=== PATIENT | female | born 1950 | race Caucasian/White ===

== ENCOUNTER 2021-07-09 15:26 | Emergency (ER) | payer MEDICARE, BC ==
[2021-07-09] MEDS: HYDROmorphone 2 MG/ML SDV IVPUSH ONE ×2 (15:40→15:50)
[2021-07-09] MEDS ORDERED: HYDROmorphone 2 MG/ML SDV IVPUSH ONE (15:51)
[2021-07-09] MEDS ORDERED: HYDROmorphone 2 MG/ML Syringe ONE ×2 (15:56→16:02)
[2021-07-09] MEDS ORDERED: Piperacillin/Tazobactam 4.5 GM in Sodium Chloride 0.9% 100 ML IV ONE (15:58)
[2021-07-09] MEDS ORDERED: Sodium Chloride 0.9% 1,000 ML IV ONE (15:58)
[2021-07-09] MEDS ORDERED: Sodium Chloride 0.9% 10 ML Syringe FLUSH PRN (15:58)
[2021-07-09] MEDS ORDERED: Ondansetron 4 MG/2 ML SDV IVPUSH ONE (16:19)
[2021-07-09] MEDS ORDERED: Ondansetron 4 MG/2 ML SDV ONE (17:59)
== END 2021-07-09 19:23 ==
LOC: LB.ED 15:26
DX: A41.9 Sepsis, unspecified organism (principal); R10.11 Right upper quadrant pain; J94.2 Hemothorax; D72.829 Elevated white blood cell count, unspecified; Z20.822 Contact with and (suspected) exposure to COVID-19
CPT/HCPCS: 36415; 71250; 74176; 80053; 83605; 83690; 84484; 85025; 87040; 93005; 93010; 96365; 96375; 99285; 99285-25; J1170; J2405; J2543; J3490; J7030; U0002

== ENCOUNTER 2021-07-15 12:03 | Inpatient (IN) | payer MEDICARE, BC ==
[2021-07-15] MEDS ORDERED: Melatonin 10 MG Cap PO PRN (17:31)
[2021-07-15] MEDS: Flecainide 50 MG Tab PO SCH (17:52)
[2021-07-15] MEDS: Piperacillin/Tazobactam 3.375 GM in Sodium Chloride 0.9% 50 ML IV SCH (18:36)
[2021-07-15] MEDS: Albuterol/Ipratropium 3.0-0.5 MG/3 ML Neb Soln NEB SCH (19:50)
[2021-07-15] MEDS: guaiFENesin 600 MG Tab.ER PO SCH (19:50)
[2021-07-16] MEDS: Piperacillin/Tazobactam 3.375 GM in Sodium Chloride 0.9% 50 ML IV SCH ×3 (03:40→18:20)
[2021-07-16] MEDS: Flecainide 50 MG Tab PO SCH ×2 (06:41→18:20)
[2021-07-16] MEDS: Albuterol/Ipratropium 3.0-0.5 MG/3 ML Neb Soln NEB SCH ×3 (07:38→20:20)
[2021-07-16] MEDS: Metoprolol Succinate 25 MG Tab.ER PO SCH (07:39)
[2021-07-16] MEDS: guaiFENesin 600 MG Tab.ER PO SCH ×2 (07:39→20:20)
[2021-07-17] MEDS: Piperacillin/Tazobactam 3.375 GM in Sodium Chloride 0.9% 50 ML IV SCH ×3 (03:39→18:00)
[2021-07-17] MEDS: Flecainide 50 MG Tab PO SCH ×2 (06:38→17:57)
[2021-07-17] MEDS: Metoprolol Succinate 25 MG Tab.ER PO SCH (07:18)
[2021-07-17] MEDS: Albuterol/Ipratropium 3.0-0.5 MG/3 ML Neb Soln NEB SCH ×3 (07:19→20:30)
[2021-07-17] MEDS: guaiFENesin 600 MG Tab.ER PO SCH ×2 (07:19→20:30)
[2021-07-18] MEDS: Piperacillin/Tazobactam 3.375 GM in Sodium Chloride 0.9% 50 ML IV SCH ×3 (04:05→18:40)
[2021-07-18] MEDS: Flecainide 50 MG Tab PO SCH ×2 (06:49→17:29)
[2021-07-18] MEDS: Ibuprofen 400 MG Tab PO PRN (06:49)
[2021-07-18] MEDS: Metoprolol Succinate 25 MG Tab.ER PO SCH (07:57)
[2021-07-18] MEDS: guaiFENesin 600 MG Tab.ER PO SCH ×2 (07:57→19:42)
[2021-07-18] MEDS: Albuterol/Ipratropium 3.0-0.5 MG/3 ML Neb Soln NEB SCH ×3 (07:57→19:43)
[2021-07-19] MEDS: Piperacillin/Tazobactam 3.375 GM in Sodium Chloride 0.9% 50 ML IV SCH ×4 (04:01→19:54)
[2021-07-19] MEDS: Flecainide 50 MG Tab PO SCH ×2 (05:48→18:07)
[2021-07-19] MEDS: Ibuprofen 400 MG Tab PO PRN (05:51)
[2021-07-19] MEDS: Metoprolol Succinate 25 MG Tab.ER PO SCH (07:44)
[2021-07-19] MEDS: Albuterol/Ipratropium 3.0-0.5 MG/3 ML Neb Soln NEB SCH ×3 (07:44→19:55)
[2021-07-19] MEDS: guaiFENesin 600 MG Tab.ER PO SCH ×2 (07:45→19:55)
[2021-07-19] MEDS ORDERED: Piperacillin/Tazobactam 3.375 GM in Sodium Chloride 0.9% 50 ML IV SCH (12:00)
[2021-07-19] MEDS ORDERED: HEPARIN SODIUM FLUSH SCH (14:00)
[2021-07-19] MEDS: Sodium Chloride 0.9% 10 ML Syringe FLUSH SCH ×2 (17:02→22:00)
[2021-07-20] MEDS: Piperacillin/Tazobactam 3.375 GM in Sodium Chloride 0.9% 50 ML IV SCH ×3 (04:00→19:41)
[2021-07-20] MEDS: Flecainide 50 MG Tab PO SCH ×2 (05:45→18:08)
[2021-07-20] MEDS: Sodium Chloride 0.9% 10 ML Syringe FLUSH SCH ×2 (06:10→13:06)
[2021-07-20] MEDS: guaiFENesin 600 MG Tab.ER PO SCH ×2 (07:28→19:40)
[2021-07-20] MEDS: Metoprolol Succinate 25 MG Tab.ER PO SCH (07:28)
[2021-07-20] MEDS: Albuterol/Ipratropium 3.0-0.5 MG/3 ML Neb Soln NEB SCH ×3 (07:28→19:40)
[2021-07-21] MEDS: Sodium Chloride 0.9% 10 ML Syringe FLUSH SCH ×5 (03:45→21:27)
[2021-07-21] MEDS: Piperacillin/Tazobactam 3.375 GM in Sodium Chloride 0.9% 50 ML IV SCH ×3 (03:47→19:39)
[2021-07-21] MEDS: Flecainide 50 MG Tab PO SCH (05:27)
[2021-07-21] MEDS: Ibuprofen 400 MG Tab PO PRN (05:29)
[2021-07-21] MEDS: Albuterol/Ipratropium 3.0-0.5 MG/3 ML Neb Soln NEB SCH ×3 (08:03→19:38)
[2021-07-21] MEDS: Metoprolol Succinate 25 MG Tab.ER PO SCH (08:04)
[2021-07-21] MEDS: guaiFENesin 600 MG Tab.ER PO SCH ×2 (08:04→19:38)
[2021-07-21] MEDS: Flecainide 100 MG Tab PO SCH (18:03)
[2021-07-22] MEDS: Piperacillin/Tazobactam 3.375 GM in Sodium Chloride 0.9% 50 ML IV SCH ×3 (03:29→20:04)
[2021-07-22] MEDS: Sodium Chloride 0.9% 10 ML Syringe FLUSH SCH ×3 (05:51→20:35)
[2021-07-22] MEDS: Flecainide 100 MG Tab PO SCH ×2 (05:51→17:15)
[2021-07-22] MEDS: Albuterol/Ipratropium 3.0-0.5 MG/3 ML Neb Soln NEB SCH ×3 (08:28→20:09)
[2021-07-22] MEDS: Metoprolol Succinate 25 MG Tab.ER PO SCH (08:34)
[2021-07-22] MEDS: guaiFENesin 600 MG Tab.ER PO SCH ×2 (08:34→20:04)
[2021-07-22] MEDS ORDERED: Fluconazole 150 MG Tab PO ONE (11:43)
[2021-07-22] MEDS ORDERED: Melatonin 10 MG Cap PO SCH (20:00)
[2021-07-22] MEDS: Melatonin 3 MG Tab PO SCH (20:18)
[2021-07-23] MEDS: Piperacillin/Tazobactam 3.375 GM in Sodium Chloride 0.9% 50 ML IV SCH ×3 (04:27→19:51)
[2021-07-23] MEDS: Sodium Chloride 0.9% 10 ML Syringe FLUSH SCH ×3 (05:00→22:37)
[2021-07-23] MEDS: Flecainide 100 MG Tab PO SCH ×2 (05:58→17:42)
[2021-07-23] MEDS: guaiFENesin 600 MG Tab.ER PO SCH ×2 (08:54→19:51)
[2021-07-23] MEDS: Albuterol/Ipratropium 3.0-0.5 MG/3 ML Neb Soln NEB SCH ×3 (08:54→19:51)
[2021-07-23] MEDS: Metoprolol Succinate 25 MG Tab.ER PO SCH (08:54)
[2021-07-23] MEDS: Pantoprazole 40 MG Tab.CR PO SCH (08:54)
[2021-07-23] MEDS: Melatonin 3 MG Tab PO SCH (19:51)
[2021-07-24] MEDS: Piperacillin/Tazobactam 3.375 GM in Sodium Chloride 0.9% 50 ML IV SCH ×3 (04:00→20:01)
[2021-07-24] MEDS: Flecainide 100 MG Tab PO SCH ×2 (05:45→17:11)
[2021-07-24] MEDS: Sodium Chloride 0.9% 10 ML Syringe FLUSH SCH ×3 (05:45→22:00)
[2021-07-24] MEDS: Pantoprazole 40 MG Tab.CR PO SCH (08:25)
[2021-07-24] MEDS: Metoprolol Succinate 25 MG Tab.ER PO SCH (08:25)
[2021-07-24] MEDS: Albuterol/Ipratropium 3.0-0.5 MG/3 ML Neb Soln NEB SCH ×3 (08:25→20:01)
[2021-07-24] MEDS: guaiFENesin 600 MG Tab.ER PO SCH ×2 (08:25→20:01)
[2021-07-24] MEDS: Melatonin 3 MG Tab PO SCH (20:01)
[2021-07-25] MEDS: Piperacillin/Tazobactam 3.375 GM in Sodium Chloride 0.9% 50 ML IV SCH ×3 (03:52→20:08)
[2021-07-25] MEDS: Flecainide 100 MG Tab PO SCH ×2 (05:29→17:53)
[2021-07-25] MEDS: Sodium Chloride 0.9% 10 ML Syringe FLUSH SCH ×4 (05:29→22:00)
[2021-07-25] MEDS: Metoprolol Succinate 25 MG Tab.ER PO SCH (07:29)
[2021-07-25] MEDS: Pantoprazole 40 MG Tab.CR PO SCH (07:29)
[2021-07-25] MEDS: Albuterol/Ipratropium 3.0-0.5 MG/3 ML Neb Soln NEB SCH ×3 (07:30→20:08)
[2021-07-25] MEDS: guaiFENesin 600 MG Tab.ER PO SCH ×2 (07:31→20:08)
[2021-07-25] MEDS: Melatonin 3 MG Tab PO SCH (20:08)
[2021-07-26] MEDS: Piperacillin/Tazobactam 3.375 GM in Sodium Chloride 0.9% 50 ML IV SCH ×3 (04:00→19:38)
[2021-07-26] MEDS: Sodium Chloride 0.9% 10 ML Syringe FLUSH SCH (05:34)
[2021-07-26] MEDS: Flecainide 100 MG Tab PO SCH ×2 (05:34→17:28)
[2021-07-26] MEDS: Pantoprazole 40 MG Tab.CR PO SCH (06:01)
[2021-07-26] MEDS: guaiFENesin 600 MG Tab.ER PO SCH ×2 (08:06→19:38)
[2021-07-26] MEDS: Albuterol/Ipratropium 3.0-0.5 MG/3 ML Neb Soln NEB SCH ×3 (08:06→19:38)
[2021-07-26] MEDS: Metoprolol Succinate 25 MG Tab.ER PO SCH (08:08)
[2021-07-26 08:51] LABS: ESTIMATED GFR > 60 MLS/MIN (>60)
[2021-07-26] MEDS: Sodium Chloride 0.9% 10 ML Syringe FLUSH PRN ×3 (13:42→20:12)
[2021-07-26] MEDS: Melatonin 3 MG Tab PO SCH (19:38)
[2021-07-27] MEDS: Piperacillin/Tazobactam 3.375 GM in Sodium Chloride 0.9% 50 ML IV SCH ×3 (03:08→19:24)
[2021-07-27] MEDS: Sodium Chloride 0.9% 10 ML Syringe FLUSH PRN ×4 (03:09→20:02)
[2021-07-27] MEDS: Flecainide 100 MG Tab PO SCH ×2 (06:04→17:37)
[2021-07-27] MEDS: Pantoprazole 40 MG Tab.CR PO SCH (06:04)
[2021-07-27] MEDS: Albuterol/Ipratropium 3.0-0.5 MG/3 ML Neb Soln NEB SCH ×3 (08:00→19:23)
[2021-07-27] MEDS: guaiFENesin 600 MG Tab.ER PO SCH ×2 (08:00→19:23)
[2021-07-27] MEDS: Metoprolol Succinate 25 MG Tab.ER PO SCH (08:00)
[2021-07-27] MEDS: Melatonin 3 MG Tab PO SCH (19:23)
[2021-07-28] MEDS: Sodium Chloride 0.9% 10 ML Syringe FLUSH PRN ×3 (04:34→23:13)
[2021-07-28] MEDS: Piperacillin/Tazobactam 3.375 GM in Sodium Chloride 0.9% 50 ML IV SCH ×3 (04:34→22:30)
[2021-07-28] MEDS: Flecainide 100 MG Tab PO SCH ×2 (06:04→17:26)
[2021-07-28] MEDS: Pantoprazole 40 MG Tab.CR PO SCH (06:04)
[2021-07-28] MEDS: Albuterol/Ipratropium 3.0-0.5 MG/3 ML Neb Soln NEB SCH ×3 (08:10→22:27)
[2021-07-28] MEDS: Metoprolol Succinate 25 MG Tab.ER PO SCH (08:10)
[2021-07-28] MEDS: guaiFENesin 600 MG Tab.ER PO SCH ×2 (08:10→22:41)
[2021-07-28] MEDS: Melatonin 3 MG Tab PO SCH (22:30)
[2021-07-29] MEDS: Piperacillin/Tazobactam 3.375 GM in Sodium Chloride 0.9% 50 ML IV SCH (03:34)
[2021-07-29] MEDS: Sodium Chloride 0.9% 10 ML Syringe FLUSH PRN (03:36)
[2021-07-29] MEDS: Flecainide 100 MG Tab PO SCH (05:56)
[2021-07-29] MEDS: Pantoprazole 40 MG Tab.CR PO SCH (06:00)
[2021-07-29] MEDS: Metoprolol Succinate 25 MG Tab.ER PO SCH (07:48)
[2021-07-29] MEDS: Albuterol/Ipratropium 3.0-0.5 MG/3 ML Neb Soln NEB SCH (07:48)
[2021-07-29] MEDS: guaiFENesin 600 MG Tab.ER PO SCH (07:49)
== END 2021-07-29 12:00 | DRG 177 ==
LOC: LB.MS 13:33
PROVIDERS: ADMIT Surgery; ATTEND Surgery
DX: J15.6 Pneumonia due to other Gram-negative bacteria (principal); J86.9 Pyothorax without fistula; J44.0 Chronic obstructive pulmonary disease with (acute) lower respiratory infection; I48.20 Chronic atrial fibrillation, unspecified; B37.9 Candidiasis, unspecified; Z87.891 Personal history of nicotine dependence
CPT/HCPCS: 36415; 80048; 82607; 82746; 84425; 85025; 97110-GO; 97110-GP; 97116-GP; 97161-GP; 97165-GO; 97530-GP; 97535-GO; A9270-GY; J1642; J2543; J3490; J7620

== ENCOUNTER 2021-11-17 16:05 | Inpatient (IN) | payer MEDICARE, BC ==
[2021-11-17] MEDS ORDERED: Sodium Chloride 0.9% 10 ML Syringe FLUSH PRN (16:42)
[2021-11-17] MEDS ORDERED: Sodium Chloride 0.9% 1,000 ML IV ONE (16:42)
[2021-11-17] MEDS ORDERED: Sodium Chloride 0.9% 50 ML SDV FLUSH ONE (20:00)
[2021-11-17] MEDS ORDERED: Iopamidol 755 Mg/ML 100 ML Bottle IV SCH (20:00)
[2021-11-17] MEDS ORDERED: Heparin Sodium 5,000 Units/ML Vial IVPUSH ONE (20:45)
[2021-11-17] MEDS ORDERED: Heparin Sodium/D5W 25,000 UNITS/500 ML BAG IV SCH (20:45)
[2021-11-18] MEDS: Flecainide 100 MG Tab PO SCH ×3 (00:01→20:30)
[2021-11-18] MEDS: Metoprolol Succinate 25 MG Tab.ER PO SCH (08:26)
[2021-11-18] MEDS ORDERED: Furosemide 20 MG Tab PO ONE (10:21)
[2021-11-18] MEDS: Rivaroxaban 10 MG Tab PO SCH ×2 (13:29→20:24)
[2021-11-18] MEDS: Furosemide 20 MG Tab PO SCH (16:30)
[2021-11-18] MEDS: Potassium Chloride 20 MEQ Tab.ER PO SCH (20:24)
[2021-11-19] MEDS ORDERED: Acetaminophen 325 MG Tab PO PRN (04:26)
[2021-11-19] MEDS ORDERED: Acetaminophen 325 MG Tab ONE (04:29)
[2021-11-19] MEDS: Rivaroxaban 10 MG Tab PO SCH ×2 (07:51→20:27)
[2021-11-19] MEDS: Furosemide 20 MG Tab PO SCH ×2 (07:54→16:17)
[2021-11-19] MEDS: Potassium Chloride 20 MEQ Tab.ER PO SCH ×2 (07:54→20:28)
[2021-11-19] MEDS: Metoprolol Succinate 25 MG Tab.ER PO SCH (07:54)
[2021-11-19] MEDS: Flecainide 100 MG Tab PO SCH ×2 (08:57→20:30)
[2021-11-19] MEDS ORDERED: Potassium Chloride 20 MEQ Tab.ER PO ONE (10:36)
[2021-11-20] MEDS: Metoprolol Succinate 25 MG Tab.ER PO SCH (07:49)
[2021-11-20] MEDS: Rivaroxaban 10 MG Tab PO SCH ×2 (07:51→20:26)
[2021-11-20] MEDS: Potassium Chloride 20 MEQ Tab.ER PO SCH ×2 (07:51→20:27)
[2021-11-20] MEDS: Furosemide 20 MG Tab PO SCH ×2 (07:52→15:36)
[2021-11-20] MEDS: Flecainide 100 MG Tab PO SCH ×2 (09:07→20:31)
[2021-11-20] MEDS ORDERED: Multivitamins with Iron/Calcium/Folic Acid/Minerals Tab PO SCH (10:00)
== END 2021-11-22 10:00 | disposition home or self-care (01) | DRG 176 ==
LOC: LB.ED 16:05 → LB.MS 21:21 → LB.ZCENSUS 11-21 15:51
PROVIDERS: ADMIT Surgery; ATTEND Surgery
DX: I26.94 Multiple subsegmental thrombotic pulmonary emboli without acute cor pulmonale (principal); B25.8 Other cytomegaloviral diseases; F32.A Depression, unspecified; Z87.01 Personal history of pneumonia (recurrent); E87.6 Hypokalemia; I48.91 Unspecified atrial fibrillation; E86.0 Dehydration; Z20.822 Contact with and (suspected) exposure to COVID-19
CPT/HCPCS: 36415; 71260; 80048; 80053; 81003; 83735; 83880; 84100; 84484; 85025; 85027; 85379; 85610; 85730; 93005; 96361; 96374; 99285-25; A9270-GY; J1644; J3490; J7030; Q9967; U0002

== ENCOUNTER 2022-08-26 15:58 | Emergency (ER) | payer MEDICARE, BC ==
[2022-08-26] MEDS ORDERED: Sodium Chloride 0.9% 500 ML IV ONE ×2 (17:08→17:49)
[2022-08-26] MEDS ORDERED: HYDROmorphone 2 MG/ML Syringe IVPUSH PRN (17:08)
[2022-08-26] MEDS ORDERED: Ondansetron 4 MG/2 ML SDV IVPUSH ONE (17:14)
[2022-08-26 17:18] LABS: BASOPHILS ABSOLUTE AUTO 0.01 K/uL (0.02-0.10); BASOPHILS PERCENT AUTO 0.1 % (0.0-0.5); EOSINOPHILS ABSOLUTE AUTO 0.01 K/uL (0.04-0.40); EOSINOPHILS PERCENT AUTO 0.1 % (1.0-5.0); HEMATOCRIT 42.8 % (37.0-47.0); HEMOGLOBIN 13.8 g/dL (11.5-16.5); LYMPHOCYTES ABSOLUTE AUTO 5.48 K/uL (1.50-4.00); LYMPHOCYTES PERCENT AUTO 39.2 % (20.0-40.0); MEAN CORPUSCULAR HGB CONC 32.2 g/dL (31.0-35.0); MEAN CORPUSCULAR VOLUME 99 fL (76-96); MEAN PLATELET VOLUME 8.9 fL (6.0-10.0); MONOCYTES ABSOLUTE AUTO 1.14 K/uL (0.20-0.80); MONOCYTES PERCENT AUTO 8.2 % (3.0-10.0); NEUTROPHILS ABSOLUTE AUTO 7.33 K/uL (2.00-7.50); NEUTROPHILS PERCENT AUTO 52.4 % (45.0-70.0); PLATELET COUNT,PLT 182 K/uL (150-500); RED BLOOD CELL COUNT 4.31 M/uL (3.80-5.80); RED CELL DISTRIBUTION WIDTH 13.1 % (11.0-16.0)
[2022-08-26 17:35] LABS: INR 0.9 (1.0-3.5); PTT,PARTIAL THROMBOPLSTIN TIME 22.4 SECONDS (24.4-33.2)
[2022-08-26 17:37] LABS: PROTHROMBIN TIME 9.3 sec (9.0-11.5)
[2022-08-26 17:47] LABS: A/G RATIO 0.7 (0.8-2.0); ALANINE AMINOTRANSFERASE,ALT 39 U/L (12-78); ALBUMIN 2.6 g/dL (3.4-5.0); ALKALINE PHOSPHATASE 98 U/L (46-116); ANION GAP 9.7 mmol/L (5.0-15.0); ASPARTATE AMNIOTRANSFERASE,AST 15 U/L (15-37); BILIRUBIN TOTAL 0.3 mg/dL (0.0-1.0); BLOOD UREA NITROGEN,BUN 26 mg/dL (8-26); BUN/CREATININE RATIO 35.1 (6-25); CALCIUM 8.8 mg/dL (8.5-10.1); CARBON DIOXIDE,CO2 30.3 mmol/L (21.0-32.0); CHLORIDE,CL 105 mmol/L (98-107); CREATININE 0.74 mg/dL (0.55-1.02); ESTIMATED GFR 87 mL/min (>60); GLUCOSE RANDOM 113 mg/dL (74-100); LIPASE 21 U/L (16-77); PROTEIN TOTAL,TP 6.4 g/dL (6.4-8.2); SODIUM,NA 141 mmol/L (136-145)
[2022-08-26 18:00] LABS: APPEARANCE,URINE CLEAR (CLEAR); BILIRUBIN,URINE NEGATIVE (NEGATIVE); COLOR,URINE YELLOW; GLUCOSE,URINE NEGATIVE (NEGATIVE); KETONES,URINE NEGATIVE (NEGATIVE); LEUKOCYTE ESTERASE,URINE NEGATIVE (NEGATIVE); NITRITE,URINE POSITIVE (NEGATIVE); OCCULT BLOOD,URINE NEGATIVE (NEGATIVE); PROTEIN,URINE NEGATIVE (NEGATIVE); UROBILINOGEN,URINE 0.2 E.U./dL (0.2-1.0)
[2022-08-26 18:11] LABS: BACTERIA,URINE MANY /HPF; RBC,URINE 0-5 /HPF; SQUAMOUS EPITHELIAL CELLS,UR FEW /HPF
[2022-08-26] MEDS ORDERED: cefTRIAXone 1 GM in Sodium Chloride 0.9% 50 ML IV ONE (18:21)
[2022-08-26] MEDS ORDERED: Sodium Chloride 0.9% 50 ML SDV FLUSH ONE (19:51)
[2022-08-26] MEDS ORDERED: Iopamidol 612 MG/ML 100 ML Bottle IV SCH (20:00)
[2022-08-26] MEDS ORDERED: metroNIDAZOLE/Normal Saline 500 MG in Premix Bag 1 BAG IV ONE (20:14)
== END 2022-08-26 22:40 ==
LOC: LB.ED 15:58
DX: K57.20 Diverticulitis of large intestine with perforation and abscess without bleeding (principal)
CPT/HCPCS: 36415; 74178; 80053; 81001; 83605; 83690; 85025; 85610; 85730; 87086; 96361; 96365; 96375; 99285-25; J0696; J1170; J2405; J3490; J7040; Q9967

== ENCOUNTER 2022-11-19 17:42 | Inpatient (IN) | payer MEDICARE, BC ==
[2022-11-19] MEDS ORDERED: Sodium Chloride 0.9% 10 ML Syringe FLUSH PRN (18:11)
[2022-11-19] MEDS ORDERED: Ondansetron 4 MG/2 ML SDV IVPUSH ONE (18:12)
[2022-11-19] MEDS ORDERED: Morphine 4 MG/ML VIAL IVPUSH ONE (18:13)
[2022-11-19 18:42] LABS: BASOPHILS ABSOLUTE AUTO 0.02 K/uL (0.02-0.10); BASOPHILS PERCENT AUTO 0.1 % (0.0-0.5); EOSINOPHILS ABSOLUTE AUTO 0.03 K/uL (0.04-0.40); EOSINOPHILS PERCENT AUTO 0.2 % (1.0-5.0); HEMOGLOBIN 13.5 g/dL (11.5-16.5); LYMPHOCYTES ABSOLUTE AUTO 7.54 K/uL (1.50-4.00); LYMPHOCYTES PERCENT AUTO 54.2 % (20.0-40.0); MEAN CORPUSCULAR HEMOGLOBIN 33.1 pg (27.0-32.0); MEAN CORPUSCULAR HGB CONC 32.1 g/dL (31.0-35.0); MEAN CORPUSCULAR VOLUME 103 fL (76-96); MEAN PLATELET VOLUME 10.2 fL (6.0-10.0); MONOCYTES ABSOLUTE AUTO 1.18 K/uL (0.20-0.80); MONOCYTES PERCENT AUTO 8.5 % (3.0-10.0); NEUTROPHILS ABSOLUTE AUTO 5.14 K/uL (2.00-7.50); PLATELET COUNT,PLT 256 K/uL (150-500); RED BLOOD CELL COUNT 4.08 M/uL (3.80-5.80); WHITE BLOOD CELL COUNT,WBC 13.9 K/uL (4.0-11.0)
[2022-11-19 19:07] LABS: A/G RATIO 0.7 (0.8-2.0); ALANINE AMINOTRANSFERASE,ALT 23 U/L (12-78); ALBUMIN 3.1 g/dL (3.4-5.0); ALKALINE PHOSPHATASE 108 U/L (46-116); ANION GAP 10.9 mmol/L (5.0-15.0); ASPARTATE AMNIOTRANSFERASE,AST 23 U/L (15-37); BILIRUBIN TOTAL 0.3 mg/dL (0.0-1.0); BLOOD UREA NITROGEN,BUN 22 mg/dL (8-26); BUN/CREATININE RATIO 23.7 (6-25); CALCIUM 8.9 mg/dL (8.5-10.1); CARBON DIOXIDE,CO2 27.4 mmol/L (21.0-32.0); CHLORIDE,CL 105 mmol/L (98-107); CREATININE 0.93 mg/dL (0.55-1.02); EST CRCL DRUG DOSING (CG) 47.91 mL/min; ESTIMATED GFR 66 mL/min (>60); GLUCOSE RANDOM 110 mg/dL (74-100); MAGNESIUM 2.1 mg/dL (1.8-2.4); PHOSPHORUS 1.9 mg/dL (2.5-4.9); POTASSIUM,K 3.3 mmol/L (3.5-5.1); PROTEIN TOTAL,TP 7.4 g/dL (6.4-8.2); SODIUM,NA 140 mmol/L (136-145); TROPONIN I HIGH SENSITIVITY < 4.0 pg/ml (<=60.4)
[2022-11-19] MEDS ORDERED: Sodium Chloride 0.9% 1,000 ML IV SCH (19:15)
[2022-11-19 19:49] LABS: BILIRUBIN,URINE NEGATIVE (NEGATIVE); COLOR,URINE YELLOW; GLUCOSE,URINE NEGATIVE (NEGATIVE); KETONES,URINE TRACE mg/dL (NEGATIVE); LEUKOCYTE ESTERASE,URINE SMALL (NEGATIVE); NITRITE,URINE NEGATIVE (NEGATIVE); OCCULT BLOOD,URINE NEGATIVE (NEGATIVE); PH,URINE 5.5 (5.0-8.0); PROTEIN,URINE NEGATIVE (NEGATIVE); UROBILINOGEN,URINE 0.2 E.U./dL (0.2-1.0)
[2022-11-19 19:59] LABS: APPEARANCE,URINE TURBID (CLEAR); RBC,URINE 0-5 /HPF
[2022-11-19] MEDS ORDERED: Prochlorperazine 10 MG/2 ML SDV IVPUSH ONE (19:59)
[2022-11-19 20:00] LABS: CALCIUM OXALATE CRYSTALS,URINE MANY /HPF; SQUAMOUS EPITHELIAL CELLS,UR MANY /HPF; WBC,URINE 20-30 /HPF
[2022-11-19] MEDS ORDERED: Prochlorperazine 10 MG/2 ML SDV ONE (20:01)
[2022-11-19] MEDS ORDERED: Sodium Chloride 0.9% 50 ML SDV FLUSH ONE (20:10)
[2022-11-19] MEDS ORDERED: Iopamidol 755 Mg/ML 100 ML Bottle IV SCH (20:15)
[2022-11-19] MEDS ORDERED: Morphine 2 MG/ML SYRINGE IVPUSH PRN (21:16)
[2022-11-19] MEDS ORDERED: Promethazine 6.25 MG in Sodium Chloride 0.9% 50 ML IV PRN (21:16)
[2022-11-19] MEDS ORDERED: Flecainide 100 MG Tab PO SCH (21:30)
[2022-11-19] MEDS ORDERED: Heparin Sodium 5,000 Units/ML Vial SUBCUT SCH (21:30)
[2022-11-19] MEDS ORDERED: Piperacillin/Tazobactam 3.375 GM in Sodium Chloride 0.9% 100 ML IV SCH (21:30)
[2022-11-19] MEDS: Flecainide 100 MG Tab PO SCH (22:07)
[2022-11-19] MEDS: Piperacillin/Tazobactam 3.375 GM in Sodium Chloride 0.9% 100 ML IV SCH (22:11)
[2022-11-19] MEDS: Lactated Ringers 1,000 ML IV SCH (23:20)
[2022-11-20] MEDS: Piperacillin/Tazobactam 3.375 GM in Sodium Chloride 0.9% 100 ML IV SCH ×4 (03:56→22:13)
[2022-11-20] MEDS: Metoprolol Succinate 25 MG Tab.ER PO SCH (07:27)
[2022-11-20] MEDS: Flecainide 100 MG Tab PO SCH ×2 (07:29→19:22)
[2022-11-20 08:31] LABS: HEMOGLOBIN 11.6 g/dL (11.5-16.5); MEAN CORPUSCULAR HGB CONC 31.4 g/dL (31.0-35.0); MEAN PLATELET VOLUME 10.2 fL (6.0-10.0); RED BLOOD CELL COUNT 3.51 M/uL (3.80-5.80); RED CELL DISTRIBUTION WIDTH 13.2 % (11.0-16.0); WHITE BLOOD CELL COUNT,WBC 9.1 K/uL (4.0-11.0)
[2022-11-20 08:37] LABS: A/G RATIO 0.7 (0.8-2.0); ALBUMIN 2.4 g/dL (3.4-5.0); ANION GAP 7.7 mmol/L (5.0-15.0); BILIRUBIN TOTAL 0.4 mg/dL (0.0-1.0); BUN/CREATININE RATIO 17.9 (6-25); CALCIUM 8.1 mg/dL (8.5-10.1); CARBON DIOXIDE,CO2 27.1 mmol/L (21.0-32.0); CREATININE 0.78 mg/dL (0.55-1.02); EST CRCL DRUG DOSING (CG) 57.13 mL/min; POTASSIUM,K 3.8 mmol/L (3.5-5.1); PROTEIN TOTAL,TP 5.9 g/dL (6.4-8.2)
[2022-11-20] MEDS: Heparin Sodium 5,000 Units/ML Vial SUBCUT SCH ×2 (09:45→19:22)
[2022-11-20] MEDS ORDERED: Albuterol 0.021% 0.63 MG/3 ML Neb Soln NEB PRN (10:42)
[2022-11-20] MEDS ORDERED: Albuterol 0.083% 2.5 MG/3 ML Neb Soln NEB PRN (10:49)
[2022-11-20] MEDS: Lactated Ringers 1,000 ML IV SCH (12:36)
[2022-11-21] MEDS: Lactated Ringers 1,000 ML IV SCH (01:05)
[2022-11-21] MEDS: Piperacillin/Tazobactam 3.375 GM in Sodium Chloride 0.9% 100 ML IV SCH ×2 (03:51→12:12)
[2022-11-21] MEDS: Heparin Sodium 5,000 Units/ML Vial SUBCUT SCH (07:26)
[2022-11-21] MEDS: Metoprolol Succinate 25 MG Tab.ER PO SCH (07:27)
[2022-11-21] MEDS: Flecainide 100 MG Tab PO SCH (07:27)
[2022-11-21 09:04] LABS: HEMATOCRIT 39.8 % (37.0-47.0); HEMOGLOBIN 12.4 g/dL (11.5-16.5); MEAN CORPUSCULAR HEMOGLOBIN 33.2 pg (27.0-32.0); MEAN CORPUSCULAR HGB CONC 31.2 g/dL (31.0-35.0); MEAN PLATELET VOLUME 9.6 fL (6.0-10.0); RED BLOOD CELL COUNT 3.73 M/uL (3.80-5.80); RED CELL DISTRIBUTION WIDTH 13.1 % (11.0-16.0); WHITE BLOOD CELL COUNT,WBC 8.5 K/uL (4.0-11.0)
[2022-11-21 09:25] LABS: A/G RATIO 0.6 (0.8-2.0); ALBUMIN 2.4 g/dL (3.4-5.0); ANION GAP 6.9 mmol/L (5.0-15.0); BILIRUBIN TOTAL 0.3 mg/dL (0.0-1.0); BUN/CREATININE RATIO 7.6 (6-25); CALCIUM 8.8 mg/dL (8.5-10.1); CREATININE 0.92 mg/dL (0.55-1.02); EST CRCL DRUG DOSING (CG) 48.43 mL/min; POTASSIUM,K 3.9 mmol/L (3.5-5.1); PROTEIN TOTAL,TP 6.4 g/dL (6.4-8.2)
== END 2022-11-21 16:22 | disposition home or self-care (01) | DRG 445 ==
LOC: LB.ED 17:42 → LB.MS 21:16 → UNDOADMIN 21:25
PROVIDERS: ADMIT Surgery; ATTEND Surgery
DX: K81.9 Cholecystitis, unspecified (principal); K81.0 Acute cholecystitis; N39.0 Urinary tract infection, site not specified; I48.91 Unspecified atrial fibrillation; E87.6 Hypokalemia; R09.02 Hypoxemia; I10 Essential (primary) hypertension; Z87.891 Personal history of nicotine dependence; Z98.890 Other specified postprocedural states; Z86.711 Personal history of pulmonary embolism; Z79.82 Long term (current) use of aspirin; Z79.899 Other long term (current) drug therapy; Z87.01 Personal history of pneumonia (recurrent)
CPT/HCPCS: 36415; 71045; 71260; 74177; 80053; 81001; 83605; 83690; 83735; 84100; 84484; 85025; 85027; 85379; 87086; 93005; 93010; 96361; 96374; 96375; 99222; 99238; 99285-25; A9270-GY; J0780; J1644; J2270; J2405; J2543; J3490; J7030; J7120; Q9967

== ENCOUNTER 2022-12-08 13:33 | Emergency (ER) | payer MEDICARE, BC ==
[2022-12-08] MEDS ORDERED: Naloxone 2 MG/2 ML Syringe IVPUSH PRN (13:53)
[2022-12-08] MEDS ORDERED: Morphine 4 MG/ML VIAL IVPUSH ONE (13:53)
[2022-12-08 14:11] LABS: BASOPHILS ABSOLUTE AUTO 0.03 K/uL (0.02-0.10); BASOPHILS PERCENT AUTO 0.2 % (0.0-0.5); EOSINOPHILS ABSOLUTE AUTO 0.34 K/uL (0.04-0.40); EOSINOPHILS PERCENT AUTO 2.6 % (1.0-5.0); HEMATOCRIT 43.1 % (37.0-47.0); HEMOGLOBIN 13.8 g/dL (11.5-16.5); LYMPHOCYTES ABSOLUTE AUTO 6.06 K/uL (1.50-4.00); LYMPHOCYTES PERCENT AUTO 45.6 % (20.0-40.0); MEAN CORPUSCULAR HEMOGLOBIN 32.7 pg (27.0-32.0); MEAN CORPUSCULAR VOLUME 102 fL (76-96); MEAN PLATELET VOLUME 10.3 fL (6.0-10.0); MONOCYTES ABSOLUTE AUTO 1.33 K/uL (0.20-0.80); NEUTROPHILS ABSOLUTE AUTO 5.52 K/uL (2.00-7.50); NEUTROPHILS PERCENT AUTO 41.6 % (45.0-70.0); PLATELET COUNT,PLT 224 K/uL (150-500); RED BLOOD CELL COUNT 4.22 M/uL (3.80-5.80); RED CELL DISTRIBUTION WIDTH 12.4 % (11.0-16.0); WHITE BLOOD CELL COUNT,WBC 13.3 K/uL (4.0-11.0)
[2022-12-08] MEDS ORDERED: Sodium Chloride 0.9% 50 ML SDV FLUSH ONE (14:13)
[2022-12-08] MEDS ORDERED: Iopamidol 612 MG/ML 100 ML Bottle IV SCH (14:15)
[2022-12-08 14:32] LABS: A/G RATIO 0.8 (0.8-2.0); ALBUMIN 3.2 g/dL (3.4-5.0); ANION GAP 11.1 mmol/L (5.0-15.0); BILIRUBIN TOTAL 0.4 mg/dL (0.0-1.0); BUN/CREATININE RATIO 22.2 (6-25); CALCIUM 9.1 mg/dL (8.5-10.1); CARBON DIOXIDE,CO2 29.1 mmol/L (21.0-32.0); CREATININE 0.81 mg/dL (0.55-1.02); EST CRCL DRUG DOSING (CG) 55.01 mL/min; POTASSIUM,K 4.2 mmol/L (3.5-5.1); PROTEIN TOTAL,TP 7.2 g/dL (6.4-8.2)
[2022-12-08 15:06] LABS: APPEARANCE,URINE CLEAR (CLEAR); BILIRUBIN,URINE NEGATIVE (NEGATIVE); COLOR,URINE YELLOW; GLUCOSE,URINE NEGATIVE (NEGATIVE); KETONES,URINE NEGATIVE (NEGATIVE); LEUKOCYTE ESTERASE,URINE NEGATIVE (NEGATIVE); NITRITE,URINE NEGATIVE (NEGATIVE); OCCULT BLOOD,URINE NEGATIVE (NEGATIVE); PROTEIN,URINE NEGATIVE (NEGATIVE); UROBILINOGEN,URINE 0.2 E.U./dL (0.2-1.0)
[2022-12-08 15:09] LABS: RBC,URINE NOT SEEN /HPF
[2022-12-08 15:10] LABS: SQUAMOUS EPITHELIAL CELLS,UR FEW /HPF; WBC,URINE NOT SEEN /HPF
[2022-12-08] MEDS ORDERED: metroNIDAZOLE 500 MG Tab ONE ×2 (15:39→15:45)
[2022-12-08] MEDS ORDERED: Ciprofloxacin 500 MG Tab ONE (15:45)
[2022-12-08] MEDS ORDERED: Acetaminophen/HYDROcodone 325-5 MG Tab ONE (15:45)
== END 2022-12-08 15:50 | disposition home or self-care (01) ==
LOC: LB.ED 13:33
DX: K57.92 Diverticulitis of intestine, part unspecified, without perforation or abscess without bleeding (principal); Z87.891 Personal history of nicotine dependence
CPT/HCPCS: 36415; 71260; 74177; 80053; 81001; 83690; 84484; 85025; 93005; 96374; 99284; J2270; J3490; Q9967; A9270-GY

== ENCOUNTER 2023-03-21 19:30 | Observation (INO) | payer MEDICARE, BC ==
[2023-03-21] MEDS ORDERED: Lidocaine 1% with EPINEPHrine 1:100,000 20 ML MDV INJECT ONE (19:45)
[2023-03-21] MEDS ORDERED: Lidocaine 1% with EPINEPHrine 1:100,000 50 ML MDV INFILT ONE (19:45)
[2023-03-21] MEDS ORDERED: Mupirocin Oint 22 GM Tube TOP ONE (20:15)
[2023-03-21] MEDS ORDERED: Bacitracin Oint 1 GM U/D Packet TOP ONE (21:02)
[2023-03-21 21:27] LABS: HEMATOCRIT 36.2 % (37.0-47.0); HEMOGLOBIN 11.8 g/dL (11.5-16.5); MEAN CORPUSCULAR HEMOGLOBIN 32.5 pg (27.0-32.0); MEAN CORPUSCULAR HGB CONC 32.6 g/dL (31.0-35.0); MEAN PLATELET VOLUME 9.3 fL (6.0-10.0); RED BLOOD CELL COUNT 3.63 M/uL (3.80-5.80); RED CELL DISTRIBUTION WIDTH 13.9 % (11.0-16.0)
[2023-03-21 21:39] LABS: ANION GAP 16.9 mmol/L (5.0-15.0); BUN/CREATININE RATIO 46.1 (6-25); CALCIUM 8.7 mg/dL (8.5-10.1); CARBON DIOXIDE,CO2 22.1 mmol/L (21.0-32.0); CREATININE 0.76 mg/dL (0.55-1.02); EST CRCL DRUG DOSING (CG) 56.16 mL/min; TROPONIN I HIGH SENSITIVITY 6.2 pg/ml (<=60.4)
[2023-03-21] MEDS ORDERED: Sodium Chloride 0.9% 1,000 ML IV SCH (22:00)
[2023-03-21] MEDS ORDERED: cefTRIAXone 1 GM in Sodium Chloride 0.9% 50 ML IV ONE (22:21)
[2023-03-21] MEDS ORDERED: cefTRIAXone 1 GM Vial ONE (22:24)
[2023-03-21] MEDS ORDERED: Acetaminophen 325 MG Tab PO PRN (23:00)
[2023-03-21] MEDS ORDERED: Ondansetron 4 MG/2 ML SDV IV PRN (23:00)
[2023-03-21] MEDS ORDERED: Lactated Ringers 1,000 ML IV SCH (23:00)
[2023-03-21] MEDS ORDERED: Non-Formulary Medication 1 Each (Fentanyl [Fentanyl] 1 EACH Patch.Td72) TD SCH (23:15)
[2023-03-22] MEDS: Flecainide 100 MG Tab PO SCH ×2 (04:22→11:17)
[2023-03-22] MEDS ORDERED: FLU (Fluad Quad) 2023-24(65UP)/MF59C/PF 60 MCG/0.5 ML Syringe IM ONE (05:00)
[2023-03-22] MEDS ORDERED: Metoprolol Succinate 25 MG Tab.ER PO SCH (08:00)
[2023-03-22] MEDS ORDERED: fentaNYL 12 MCG/HR Transdermal Patch TOP SCH (08:00)
[2023-03-22] MEDS ORDERED: Aspirin 325 MG Tab.EC PO SCH (08:00)
[2023-03-22] MEDS ORDERED: Non-Formulary Medication 1 Each (Aspirin [Aspirin] 325 MG Tablet) PO SCH (08:00)
[2023-03-22 08:32] LABS: BASOPHILS ABSOLUTE AUTO 0.02 K/uL (0.02-0.10); BASOPHILS PERCENT AUTO 0.1 % (0.0-0.5); HEMATOCRIT 32.8 % (37.0-47.0); HEMOGLOBIN 10.6 g/dL (11.5-16.5); LYMPHOCYTES ABSOLUTE AUTO 5.78 K/uL (1.50-4.00); LYMPHOCYTES PERCENT AUTO 29.1 % (20.0-40.0); MEAN CORPUSCULAR HEMOGLOBIN 32.7 pg (27.0-32.0); MEAN CORPUSCULAR HGB CONC 32.3 g/dL (31.0-35.0); MEAN CORPUSCULAR VOLUME 101 fL (76-96); MEAN PLATELET VOLUME 9.6 fL (6.0-10.0); MONOCYTES ABSOLUTE AUTO 1.55 K/uL (0.20-0.80); MONOCYTES PERCENT AUTO 7.8 % (3.0-10.0); NEUTROPHILS ABSOLUTE AUTO 12.49 K/uL (2.00-7.50); PLATELET COUNT,PLT 256 K/uL (150-500); RED BLOOD CELL COUNT 3.24 M/uL (3.80-5.80); RED CELL DISTRIBUTION WIDTH 14.1 % (11.0-16.0); WHITE BLOOD CELL COUNT,WBC 19.8 K/uL (4.0-11.0)
[2023-03-22 15:07] VITALS: BP 138/82; PULSE 93
== END 2023-03-22 15:05 | disposition home or self-care (01) ==
LOC: LB.ED 19:30 → LB.MS 23:00
PROVIDERS: ADMIT Surgery; ATTEND Surgery
DX: S01.81XA Laceration without foreign body of other part of head, initial encounter (principal); S40.012A Contusion of left shoulder, initial encounter; D72.829 Elevated white blood cell count, unspecified; Z79.82 Long term (current) use of aspirin; E66.9 Obesity, unspecified; Z79.899 Other long term (current) drug therapy; W18.30XA Fall on same level, unspecified, initial encounter
CPT/HCPCS: 36415; 70450; 70486; 73030-LT; 80048; 80307; 83605; 84484; 85025; 85027; 87040; 93005; 93010; 99221; 99238; A9270-GY; J0696; J3490; J7030; J7120

== ENCOUNTER 2024-01-28 09:11 | Inpatient (IN) | payer MEDICARE, BC ==
[2024-01-28] MEDS ORDERED: Sodium Chloride 0.9% 10 ML Syringe FLUSH PRN (09:24)
[2024-01-28 09:43] LABS: HEMATOCRIT 43.2 % (37.0-47.0); HEMOGLOBIN 13.6 g/dL (11.5-16.5); MEAN CORPUSCULAR HEMOGLOBIN 32.7 pg (27.0-32.0); MEAN CORPUSCULAR HGB CONC 31.5 g/dL (31.0-35.0); MEAN PLATELET VOLUME 9.5 fL (6.0-10.0); RED BLOOD CELL COUNT 4.16 M/uL (3.80-5.80); RED CELL DISTRIBUTION WIDTH 14.3 % (11.0-16.0); WHITE BLOOD CELL COUNT,WBC 16.8 K/uL (4.0-11.0)
[2024-01-28 09:54] LABS: ANION GAP 10.2 mmol/L (5.0-15.0); BUN/CREATININE RATIO 18.9 (6-25); CALCIUM 8.8 mg/dL (8.5-10.1); CARBON DIOXIDE,CO2 31.7 mmol/L (21.0-32.0); CREATININE 0.95 mg/dL (0.55-1.02); EST CRCL DRUG DOSING (CG) 44.28 mL/min; MAGNESIUM 1.9 mg/dL (1.8-2.4); POTASSIUM,K 3.9 mmol/L (3.5-5.1)
[2024-01-28 10:02] LABS: LACTIC ACID 1.2 mmol/L (0.4-2.0)
[2024-01-28 10:09] LABS: INFLUENZA A NAA NEGATIVE (NEGATIVE); INFLUENZA B NAA NEGATIVE (NEGATIVE); RESPIRATORY SYNCYTIAL VIR NAA NEGATIVE (NEGATIVE)
[2024-01-28 10:11] LABS: CORONAVIRUS COVID-19 NAA POSITIVE (NEGATIVE)
[2024-01-28] MEDS: Sodium Chloride 0.9% 1,000 ML IV SCH (10:25)
[2024-01-28] MEDS ORDERED: Albuterol 0.083% 2.5 MG/3 ML Neb Soln NEB PRN (10:27)
[2024-01-28] MEDS: Azithromycin 500 MG in Sodium Chloride 0.9% 250 ML IV ONE (10:33)
[2024-01-28] MEDS: Albuterol 0.083% 2.5 MG/3 ML Neb Soln NEB ONE (11:21)
[2024-01-28] MEDS: Flecainide 100 MG Tab PO SCH (20:25)
[2024-01-28] MEDS: Albuterol 0.083% 2.5 MG/3 ML Neb Soln NEB SCH (20:25)
[2024-01-29] MEDS: Acetaminophen/Codeine 300-30 MG Tab PO PRN (08:00)
[2024-01-29] MEDS: Metoprolol Succinate 25 MG Tab.ER PO SCH (08:00)
[2024-01-29] MEDS ORDERED: Non-Formulary Medication 1 Each (Aspirin [Aspirin] 325 MG Tablet) PO SCH (08:00)
[2024-01-29] MEDS: Aspirin 325 MG Tab.EC PO SCH (08:00)
[2024-01-29 10:05] LABS: HEMATOCRIT 38.9 % (37.0-47.0); HEMOGLOBIN 12.2 g/dL (11.5-16.5); MEAN CORPUSCULAR HEMOGLOBIN 32.6 pg (27.0-32.0); MEAN CORPUSCULAR HGB CONC 31.4 g/dL (31.0-35.0); RED BLOOD CELL COUNT 3.74 M/uL (3.80-5.80); RED CELL DISTRIBUTION WIDTH 14.5 % (11.0-16.0); WHITE BLOOD CELL COUNT,WBC 13.6 K/uL (4.0-11.0)
[2024-01-29] MEDS: Azithromycin 250 MG in Sodium Chloride 0.9% 250 ML IV SCH (10:33)
[2024-01-29 11:01] LABS: C-REACTIVE PROTEIN 71.7 mg/L (<5.0); CALCIUM 8.8 mg/dL (8.5-10.1); CARBON DIOXIDE,CO2 28.6 mmol/L (21.0-32.0); CREATININE 0.94 mg/dL (0.55-1.02); EST CRCL DRUG DOSING (CG) 44.75 mL/min; POTASSIUM,K 3.6 mmol/L (3.5-5.1)
[2024-01-29] MEDS: Heparin Sodium 5,000 Units/ML Vial SUBCUT SCH (11:45)
[2024-01-29] MEDS: Ondansetron 4 MG Tab.DIS PO PRN (11:45)
[2024-01-30 09:21] LABS: HEMATOCRIT 42.2 % (37.0-47.0); HEMOGLOBIN 13.2 g/dL (11.5-16.5); MEAN CORPUSCULAR HEMOGLOBIN 32.5 pg (27.0-32.0); MEAN CORPUSCULAR HGB CONC 31.3 g/dL (31.0-35.0); MEAN PLATELET VOLUME 9.2 fL (6.0-10.0); RED BLOOD CELL COUNT 4.06 M/uL (3.80-5.80); RED CELL DISTRIBUTION WIDTH 14.2 % (11.0-16.0)
[2024-01-30] MEDS ORDERED: Albuterol 0.083% 2.5 MG/3 ML Neb Soln NEB PRN (09:28)
[2024-01-30 09:40] LABS: ANION GAP 8.6 mmol/L (5.0-15.0); BUN/CREATININE RATIO 15.2 (6-25); C-REACTIVE PROTEIN 55.2 mg/L (<5.0); CALCIUM 8.7 mg/dL (8.5-10.1); CARBON DIOXIDE,CO2 31.9 mmol/L (21.0-32.0); CREATININE 0.92 mg/dL (0.55-1.02); EST CRCL DRUG DOSING (CG) 45.72 mL/min; MAGNESIUM 1.9 mg/dL (1.8-2.4); POTASSIUM,K 3.5 mmol/L (3.5-5.1)
[2024-01-30] MEDS: Zinc (Zinc Gluconate) 50 MG Tab PO SCH (16:47)
[2024-01-30] MEDS: Ascorbic Acid 500 MG Tab PO SCH (16:47)
[2024-01-30] MEDS: Acetaminophen/Codeine 300-30 MG Tab PO ONE (19:47)
[2024-01-31] MEDS: Azithromycin 250 MG Tab PO SCH (08:32)
[2024-01-31 09:13] LABS: HEMATOCRIT 42.8 % (37.0-47.0); HEMOGLOBIN 13.3 g/dL (11.5-16.5); MEAN CORPUSCULAR HGB CONC 31.1 g/dL (31.0-35.0); MEAN PLATELET VOLUME 9.2 fL (6.0-10.0); RED BLOOD CELL COUNT 4.15 M/uL (3.80-5.80); RED CELL DISTRIBUTION WIDTH 13.9 % (11.0-16.0); WHITE BLOOD CELL COUNT,WBC 12.2 K/uL (4.0-11.0)
[2024-01-31 11:25] VITALS: BP 117/62; PULSE 73
== END 2024-01-31 11:11 | disposition home or self-care (01) | DRG 871 ==
LOC: LB.ED 09:11 → LB.MS 10:26
PROVIDERS: ADMIT Surgery; ATTEND Surgery
DX: A41.9 Sepsis, unspecified organism (principal); J12.82 Pneumonia due to coronavirus disease 2019; U07.1 COVID-19; J18.9 Pneumonia, unspecified organism; J44.0 Chronic obstructive pulmonary disease with (acute) lower respiratory infection; E86.0 Dehydration; E66.9 Obesity, unspecified; I48.91 Unspecified atrial fibrillation; G89.29 Other chronic pain; M54.9 Dorsalgia, unspecified; F15.90 Other stimulant use, unspecified, uncomplicated; Z79.82 Long term (current) use of aspirin; Z90.89 Acquired absence of other organs; Z79.899 Other long term (current) drug therapy; Z87.81 Personal history of (healed) traumatic fracture
CPT/HCPCS: 0241U; 36415; 71045; 80048; 83605; 83735; 85027; 86140; 94640; 99222; 99231; 99238; 99285; A9270-GY; J0456; J1644; J7030; J7050; Q0162

== ENCOUNTER 2024-04-30 14:06 | Emergency (ER) | payer MEDICARE, BC ==
[2024-04-30 14:54] LABS: BASOPHILS ABSOLUTE AUTO 0.03 K/uL (0.02-0.10); BASOPHILS PERCENT AUTO 0.2 % (0.0-0.5); EOSINOPHILS ABSOLUTE AUTO 0.17 K/uL (0.04-0.40); EOSINOPHILS PERCENT AUTO 1.4 % (1.0-5.0); HEMATOCRIT 44.6 % (37.0-47.0); LYMPHOCYTES ABSOLUTE AUTO 4.66 K/uL (1.50-4.00); LYMPHOCYTES PERCENT AUTO 37.2 % (20.0-40.0); MEAN CORPUSCULAR HEMOGLOBIN 31.7 pg (27.0-32.0); MEAN CORPUSCULAR HGB CONC 31.4 g/dL (31.0-35.0); MEAN CORPUSCULAR VOLUME 101 fL (76-96); MEAN PLATELET VOLUME 11.2 fL (6.0-10.0); MONOCYTES ABSOLUTE AUTO 1.21 K/uL (0.20-0.80); MONOCYTES PERCENT AUTO 9.7 % (3.0-10.0); NEUTROPHILS ABSOLUTE AUTO 6.45 K/uL (2.00-7.50); NEUTROPHILS PERCENT AUTO 51.5 % (45.0-70.0); PLATELET COUNT,PLT 238 K/uL (150-500); RED BLOOD CELL COUNT 4.41 M/uL (3.80-5.80); RED CELL DISTRIBUTION WIDTH 13.4 % (11.0-16.0); WHITE BLOOD CELL COUNT,WBC 12.5 K/uL (4.0-11.0)
[2024-04-30 15:15] LABS: A/G RATIO 0.7 (0.8-2.0); ANION GAP 10.6 mmol/L (5.0-15.0); BILIRUBIN TOTAL 0.4 mg/dL (0.0-1.0); BUN/CREATININE RATIO 18.8 (6-25); CALCIUM 8.9 mg/dL (8.5-10.1); CARBON DIOXIDE,CO2 31.1 mmol/L (21.0-32.0); CREATININE 0.96 mg/dL (0.55-1.02); EST CRCL DRUG DOSING (CG) 45.74 mL/min; POTASSIUM,K 3.7 mmol/L (3.5-5.1); PROTEIN TOTAL,TP 7.1 g/dL (6.4-8.2)
[2024-04-30 15:30] LABS: INFLUENZA A NAA NEGATIVE (NEGATIVE); INFLUENZA B NAA NEGATIVE (NEGATIVE); RESPIRATORY SYNCYTIAL VIR NAA NEGATIVE (NEGATIVE)
[2024-04-30 15:32] LABS: CORONAVIRUS COVID-19 NAA NEGATIVE (NEGATIVE)
[2024-04-30 16:38] LABS: APPEARANCE,URINE TURBID (CLEAR); COLOR,URINE OTHER; PH,URINE 5.5 (5.0-8.0)
[2024-04-30 16:39] LABS: BILIRUBIN,URINE NEGATIVE (NEGATIVE); GLUCOSE,URINE NEGATIVE (NEGATIVE); KETONES,URINE NEGATIVE (NEGATIVE); LEUKOCYTE ESTERASE,URINE SMALL (NEGATIVE); NITRITE,URINE NEGATIVE (NEGATIVE); OCCULT BLOOD,URINE NEGATIVE (NEGATIVE); PROTEIN,URINE 30 mg/dL (NEGATIVE); UROBILINOGEN,URINE 0.2 E.U./dL (0.2-1.0)
[2024-04-30 16:40] LABS: RBC,URINE 0-5 /HPF; SQUAMOUS EPITHELIAL CELLS,UR MANY /HPF
== END 2024-04-30 18:12 | disposition home or self-care (01) ==
LOC: LB.ED 14:06
DX: T58.2X1A Toxic effect of carbon monoxide from incomplete combustion of other domestic fuels, accidental (unintentional), initial encounter (principal); J44.9 Chronic obstructive pulmonary disease, unspecified
CPT/HCPCS: 0241U; 36415; 71045; 80053; 81001; 85025; 88740; 93005; 99284

== ENCOUNTER 2024-09-08 12:19 | Emergency (ER) | payer MEDICARE, BC ==
[2024-09-08] MEDS: Acetaminophen/HYDROcodone 325-5 MG Tab PO ONE (12:46)
== END 2024-09-08 14:20 | disposition home or self-care (01) ==
LOC: LB.ED 12:19
DX: S82.831A Other fracture of upper and lower end of right fibula, initial encounter for closed fracture (principal); I48.91 Unspecified atrial fibrillation; J44.9 Chronic obstructive pulmonary disease, unspecified; Z79.899 Other long term (current) drug therapy; Z79.82 Long term (current) use of aspirin; W01.0XXA Fall on same level from slipping, tripping and stumbling without subsequent striking against object, initial encounter; Y93.89 Activity, other specified
CPT/HCPCS: 73590; 73610; 99283; A9270

== ENCOUNTER 2024-10-26 12:20 | Emergency (ER) | payer MEDICARE, BC ==
[2024-10-26] MEDS: Ondansetron 4 MG/2 ML SDV IVPUSH ONE (12:40)
[2024-10-26] MEDS: Ketorolac 15 MG/ML SDV IVPUSH ONE (12:43)
[2024-10-26] MEDS ORDERED: Sodium Chloride 0.9% 10 ML Syringe FLUSH PRN (12:52)
[2024-10-26 12:55] LABS: MEAN PLATELET VOLUME 9.9 fL (6.0-10.0); PLATELET COUNT,PLT 323 K/uL (150-500); RED BLOOD CELL COUNT 4.92 M/uL (3.80-5.80); RED CELL DISTRIBUTION WIDTH 12.7 % (11.0-16.0)
[2024-10-26 12:57] LABS: WHITE BLOOD CELL COUNT,WBC 27.1 K/uL (4.0-11.0)
[2024-10-26 13:16] LABS: A/G RATIO 0.6 (0.8-2.0); ALANINE AMINOTRANSFERASE,ALT 39.0 U/L (12-78); ASPARTATE AMNIOTRANSFERASE,AST 18.0 U/L (15-37); BILIRUBIN TOTAL 0.8 mg/dL (0.0-1.0); BLOOD UREA NITROGEN,BUN 23.0 mg/dL (8-26); CARBON DIOXIDE,CO2 23.0 mmol/L (21.0-32.0); CHLORIDE,CL 97.0 mmol/L (98-107); CREATININE 0.97 mg/dL (0.55-1.02); EST CRCL DRUG DOSING (CG) 42.73 mL/min; ESTIMATED GFR 62.0 mL/min (>60); GLUCOSE RANDOM 145.0 mg/dL (74-100); POTASSIUM,K 4.2 mmol/L (3.5-5.1); PROTEIN TOTAL,TP 7.6 g/dL (6.4-8.2); SODIUM,NA 131.0 mmol/L (136-145)
[2024-10-26 13:27] LABS: LYMPHOCYTES PERCENT MAN 11.0 % (20.0-40.0); MONOCYTES PERCENT MAN 4.0 % (3.0-10.0); SEG NEUTROPHILS PERCENT MAN 85.0 % (45.0-70.0)
[2024-10-26 13:28] LABS: PLATELET COUNT ESTIMATE ADEQUATE
[2024-10-26] MEDS: Iopamidol 612 MG/ML 100 ML Bottle IV SCH (13:37)
[2024-10-26] MEDS: Sodium Chloride 0.9% 50 ML SDV FLUSH ONE (13:37)
[2024-10-26 14:14] LABS: APPEARANCE,URINE SLIGHTLY CLOUDY (CLEAR); GLUCOSE,URINE NEGATIVE (NEGATIVE); OCCULT BLOOD,URINE NEGATIVE (NEGATIVE)
[2024-10-26 14:18] LABS: SQUAMOUS EPITHELIAL CELLS,UR FEW /HPF
== END 2024-10-26 15:45 ==
LOC: LB.ED 12:20
DX: K57.20 Diverticulitis of large intestine with perforation and abscess without bleeding (principal); I48.91 Unspecified atrial fibrillation; J44.9 Chronic obstructive pulmonary disease, unspecified; Z79.82 Long term (current) use of aspirin; Z79.899 Other long term (current) drug therapy
CPT/HCPCS: 36415; 74019; 74177; 80053; 81001; 83690; 85025; 86140; 87040; 96361; 96365; 96375; 99285-25; A0425; A0428; J1885; J2270; J2405; J2543; J7030; Q9967